=== PATIENT | male | born 1970 | race Caucasian/White ===

== ENCOUNTER 2016-06-26 16:58 | Inpatient (IN) | payer OTHER ==
[~2016-06-26 16:58] MED LIST: ACETAMINOPHEN 325 MG TAB PO PRN; DOCUSATE SODIUM 50 MG/SENNA 8.6 MG TAB PO PRN; METF500T PO; ONDANSETRON HCL 4 MG/2 ML VIAL IV PRN; RESP: ALBUTEROL 2.5 MG/3 ML NEB (PRN) INH; ROSU5 PO; SODIUM CHLORIDE 0.9% FLUSH 10 ML FLUSH IV FLUSH PRN; SPIRCAP INH; TEMAZEPAM 15 MG CAP PO PRN; [UNRECOGNIZED DRUG - REMARK]; methylPREDNISolone SOD SUCC 125 MG/2 ML VIAL IVP SCH
[2016-06-26 17:00] VITALS: BP 154/95; PULSE 85; RESP 22; TEMP 97.6; O2SAT 92
[2016-06-26] MEDS ORDERED: SODIUM CHLORIDE 0.9% FLUSH 10 ML FLUSH IV FLUSH PRN (17:15)
[2016-06-26] MEDS ORDERED: RESP: ALBUTEROL 2.5 MG/3 ML NEB (PRN) INH (17:15)
[2016-06-26] MEDS ORDERED: ACETAMINOPHEN 325 MG TAB PO PRN (17:15)
[2016-06-26] MEDS ORDERED: ONDANSETRON HCL 4 MG/2 ML VIAL IV PRN (17:15)
[2016-06-26] MEDS ORDERED: DOCUSATE SODIUM 50 MG/SENNA 8.6 MG TAB PO PRN (17:15)
[2016-06-26] MEDS ORDERED: TEMAZEPAM 15 MG CAP PO PRN (17:15)
--- NOTE | 2016-06-26 17:20 | HHI.HP ---
[facility] Service [facility] Primary Care Physician Unknown Admission Diagnosis Diagnoses: (1) Chronic obstructive pulmonary disease with hypoxia Diagnosis: Principal (2) Benign labile hypertension (3) Tobacco abuse (4) Leukocytosis (5) IFG (impaired fasting glucose) (6) Diabetes mellitus, type 2 Chief Complaint: Shortnes of breath Travel History International Travel<30 Days: No Contact w/Intl Traveler <30 Da: No Traveled to Known Affected Are: No History of Present Illness 46-year-old male with a history of diabetes type 2, COPD initially went to [place] [facility] for evaluation of acute shortness of breath and wheezing along with nonproductive cough and was subsequently transferred to [facility] for admission for COPD exacerbation. Patient states, he became severely short of breath while coughing and wasn't able to breathe however denies any chest pain. States, despite Treatment with Symbicort he had no improvement. He was diagnosed with some respiratory problem about 1 yr ago and he was prescribed Spiriva which he had run out of it in the past 4 months. He is unsure if it was a diagnosis for COPD. She also stated he was diagnosed with type 2 diabetes as been on metformin 500 mg however run out of his medication. He smokes over one pack and half a day. Currently he denies any GI bleed Review of Systems Other 12 systems review and are negative except for the ones mentioned in the history of present illness Past Family Social History Past Medical History COPD Past Surgical History appendectomy Reported Medications Crestor 20 mg daily Metformin 500 mg daily Spiriva Allergies: Coded Allergies: Phenobarbital (Verified Allergy, Intermediate, 06/26/16) Unknown Family History Family History positive for lung cancer Social History Alcohol Use: No Tobacco Use: Yes Substance Use: No Physical Exam Physical Exam GENERAL: This is a well-nourished, well-developed patient, in no apparent distress. SKIN: No rashes, ecchymoses or lesions. Cool and dry. HEAD: Atraumatic. Normocephalic. No temporal or scalp tenderness. EYES: Pupils equal round and reactive. Extraocular motions intact. No scleral icterus. No injection or drainage. ENT: Nose without bleeding, purulent drainage or septal hematoma. Throat without erythema, tonsillar hypertrophy or exudate. Uvula midline. Airway patent. NECK: Trachea midline. No JVD or lymphadenopathy. Supple, nontender, no meningeal signs. CARDIOVASCULAR: Regular rate and rhythm without murmurs, gallops, or rubs. RESPIRATORY: Clear to auscultation. Breath sounds decreased bilaterally. Expiratory wheezes GASTROINTESTINAL: Abdomen soft, non-tender, nondistended. No hepato-splenomegaly , or palpable masses. No guarding. MUSCULOSKELETAL: Extremities without clubbing, cyanosis, or edema. No joint tenderness, effusion, or edema noted. No calf tenderness. Negative Homans sign bilaterally. NEUROLOGICAL: Awake and alert. Cranial nerves II through XII intact. Motor and sensory grossly within normal limits. Five out of 5 muscle strength in all muscle groups. Normal speech. Assessment and Plan Problem List: (1) Chronic obstructive pulmonary disease with hypoxia ICD Code: J44.9 Status: Acute (2) Benign labile hypertension ICD Code: I10 Status: Acute (3) Leukocytosis ICD Code: D72.829 Status: Acute (4) IFG (impaired fasting glucose) ICD Code: R73.01 Status: Acute (5) Tobacco abuse ICD Code: Z72.0 Status: Chronic (6) Hypoxemia ICD Code: R09.02 Status: Acute Assessment and Plan 46-year-old man with COPD exacerbation with hypoxia CXR noted and review by me without any CPD ABG with PO2 of 84% Treatment with Solu Medrol 40mg Q8H, Symbicort, Spiriva, Scheduled and PRN Duo Neb, Azithromycin 250mg daily Maintain oxygen saturation above 92% and consider Respiratory Walk test prior to discharge Counselled about Tobacco cessation Benign Labile Hypertension Start Norvasc 5mg Daily Hydralazine PRN Diabetes type 2 Resume metformin and check hemoglobin A1c Start insulin sliding scale with fingerstick blood glucose monitoring Hyperlipidemia Resume statin Check lipid profile Leukocytosis 2/2 Stress reactive CXR without any CPD Monitor CBC Tobacco abuse Tobacco counselling provided Start Nicotine patch DVT prophylaxis: B-SCD Code Status Full code Discussed Condition With patient , , ED physician Physician Certification 2 Midnight Certification Type: Admission for Inpatient Services Order for Inpatient Services The services are ordered in accordance with Medicare regulations or non- Medicare payer requirements, as applicable. In the case of services not specified as inpatient-only, they are appropriately provided as inpatient services in accordance with the 2-midnight benchmark. Estimated LOS (days): 2 days is the estimated time the patient will need to remain in the hospital, assuming treatment plan goals are met and no additional complications. Post-Hospital Plan: Not yet determined Manish Hallman MD Jun 26, 2016 17:20
[2016-06-26] MEDS ORDERED: hydrALAZINE HCL 25 MG TAB PO PRN (17:45)
[2016-06-26] MEDS ORDERED: GLUCAGON 1 MG/ML VIAL OTHER PRN (18:30)
[2016-06-26] MEDS ORDERED: DEXTROSE 50% IN WATER 50 ML VIAL(D50) IV PUSH PRN (18:30)
[2016-06-26 19:23] VITALS: O2SAT 100
[2016-06-26] MEDS: RESP: ALBUTEROL 2.5 MG/IPRATROPIUM 0.5 MG NEB (SCH) NEB (19:23)
[2016-06-26 20:00] VITALS: BP 160/88; PULSE 84; RESP 20; TEMP 97.3; O2SAT 96
[2016-06-26] MEDS ORDERED: RESP: ALBUTEROL 2.5 MG/IPRATROPIUM 0.5 MG NEB (SCH) NEB (20:00)
[2016-06-26] MEDS: SODIUM CHLORIDE 0.9% FLUSH 10 ML FLUSH IV FLUSH SCH (20:56)
[2016-06-26] MEDS: ATORVASTATIN 20 MG TAB PO SCH (20:57)
[2016-06-26] MEDS: guaiFENesin E.R. 600 MG TAB PO SCH (20:58)
[2016-06-26] MEDS: INSULIN ASPART SUPPLEMENTAL SCALE SQ SCH (20:58)
[2016-06-26] MEDS ORDERED: guaiFENesin E.R. 600 MG TAB PO SCH (21:00)
[2016-06-26] MEDS ORDERED: BUDESONIDE-FORMOTEROL 160/4.5 MCG INHALER INH SCH (21:00)
[2016-06-26] MEDS ORDERED: SODIUM CHLORIDE 0.9% FLUSH 10 ML FLUSH IV FLUSH SCH (21:00)
[2016-06-26] MEDS: methylPREDNISolone SOD SUCC 125 MG/2 ML VIAL IVP SCH (21:00)
[2016-06-26] MEDS: BUDESONIDE-FORMOTEROL 160/4.5 MCG INHALER INH SCH (21:18)
[2016-06-27] VITALS (7 sets, daily range): BP systolic 119–161; BP diastolic 64–89; PULSE 66–81; RESP 20–22; TEMP 96.3–97.7; O2SAT 92–98
[2016-06-27] MEDS: methylPREDNISolone SOD SUCC 125 MG/2 ML VIAL IVP SCH ×3 (05:55→20:48)
[2016-06-27 06:41] LABS: AUTOMATED NEUTROPHIL # 16.9 TH/MM3 (1.8-7.7); BASOPHIL # 0.5 TH/MM3 (0-0.2); BASOPHIL % 2.5 % (0.0-2.0); EOSINOPHIL % 0.1 % (0.0-4.0); HEMATOCRIT 46.6 % (39.0-51.0); LYMPH % 8.1 % (9.0-44.0); LYMPHOCYTE # 1.6 TH/MM3 (1.0-4.8); MEAN CELL VOLUME 87.7 FL (80.0-100.0); MEAN CORPUSCULAR HEMOGLOBIN 29.3 PG (27.0-34.0); MEAN CORPUSCULAR HGB CONC 33.4 % (32.0-36.0); MONO % 1.2 % (0.0-8.0); NEUT % 88.1 % (16.0-70.0); PLATELET COUNT 285 TH/MM3 (150-450); RED BLOOD COUNT 5.31 MIL/MM3 (4.50-5.90); RED CELL DISTRIBUTION WIDTH 13.3 % (11.6-17.2); WHITE BLOOD COUNT 19.2 TH/MM3 (4.0-11.0)
[2016-06-27 06:48] LABS: CHLORIDE 106 MEQ/L (98-107); POTASSIUM 4.5 MEQ/L (3.5-5.1); SODIUM (NA) 140 MEQ/L (136-145)
[2016-06-27 06:50] LABS: HEMO FLAGS AUTO DIFF
[2016-06-27] MEDS: INSULIN ASPART SUPPLEMENTAL SCALE SQ SCH ×4 (06:52→20:48)
[2016-06-27 06:58] LABS: ANION GAP 9 MEQ/L (5-15); BICARBONATE 25.4 MEQ/L (21.0-32.0); BLOOD UREA NITROGEN 15 MG/DL (7-18)
[2016-06-27 07:00] LABS: AST (GOT) 10 U/L (15-37)
[2016-06-27 07:01] LABS: ALT (GPT) 32 U/L (12-78); GLOMERULAR FILTRATION RATE 99 ML/MIN (>89)
[2016-06-27 07:02] LABS: TOTAL BILIRUBIN ADULT 0.3 MG/DL (0.2-1.0)
[2016-06-27 07:03] LABS: ALKALINE PHOSPHATASE 110 U/L (45-117)
[2016-06-27 07:14] LABS: SCAN/DIFF AUTO DIFF CONFIRMED
[2016-06-27] MEDS: RESP: ALBUTEROL 2.5 MG/IPRATROPIUM 0.5 MG NEB (SCH) NEB ×3 (07:29→19:53)
[2016-06-27] MEDS: NICOTINE 21 MG/24 HR PATCH TD SCH (09:00)
[2016-06-27] MEDS ORDERED: TIOTROPIUM BROMIDE 18 MCG INH INH SCH (09:00)
[2016-06-27] MEDS ORDERED: NICOTINE 21 MG/24 HR PATCH TD SCH (09:00)
[2016-06-27] MEDS ORDERED: metFORMIN HCL 500 MG TAB PO SCH (09:00)
[2016-06-27] MEDS: amLODIPine BESYLATE 5 MG TAB PO SCH (09:00)
[2016-06-27] MEDS: guaiFENesin E.R. 600 MG TAB PO SCH ×2 (09:00→20:48)
[2016-06-27] MEDS: SODIUM CHLORIDE 0.9% FLUSH 10 ML FLUSH IV FLUSH SCH ×2 (09:01→20:49)
--- NOTE | 2016-06-27 09:29 | HHI.PR ---
Subjective Remarks Follow-up COPD exacerbation 06/27/16-patient seen and examined, reports significant improvement or shortness of breath as well as wheezing. Currently afebrile. Objective Vitals Vital Signs Date Time Temp Pulse Resp B/P Pulse Ox O2 Delivery O2 Flow Rate FiO2 06/27/16 08:00 97.7 78 20 153/77 94 06/27/16 07:31 95 Nasal Cannula 2.00 06/27/16 00:00 97.1 66 20 119/64 98 06/26/16 20:00 97.3 84 20 160/88 96 06/26/16 19:23 100 Nasal Cannula 4.00 06/26/16 17:00 97.6 85 22 154/95 92 I/O 06/26/16 06/26/16 06/26/16 06/27/16 06/27/16 06/27/16 07:00 15:00 23:00 07:00 15:00 23:00 Intake Total 480 ml 420 ml Output Total 250 ml 250 ml Balance 230 ml 170 ml Intake Oral 480 ml 420 ml Output Urine Total 250 ml 250 ml # Bowel Movements 0 0 Result Diagram: 06/27/16 0555 06/27/16 0555 Objective Remarks GENERAL: NAD SKIN: Warm and dry. HEAD: Normocephalic. EYES: No scleral icterus. No injection or drainage. NECK: Supple, trachea midline. No JVD or lymphadenopathy. CARDIOVASCULAR: Regular rate and rhythm without murmurs, gallops, or rubs. RESPIRATORY: Breath sounds equal bilaterally. No accessory muscle use. Positive for expiratory wheezes GASTROINTESTINAL: Abdomen soft, non-tender, nondistended. MUSCULOSKELETAL: No cyanosis, or edema. BACK: Nontender without obvious deformity. No CVA tenderness. A/P Problem List: (1) Chronic obstructive pulmonary disease with hypoxia ICD Code: J44.9 Status: Acute (2) Benign labile hypertension ICD Code: I10 Status: Acute (3) Tobacco abuse ICD Code: Z72.0 Status: Chronic (4) Leukocytosis ICD Code: D72.829 Status: Acute (5) Diabetes mellitus, type 2 ICD Code: E11.9 Status: Chronic Assessment and Plan 46-year-old man with COPD exacerbation with hypoxia CXR without any CPD ABG with PO2 of 84% on admission Improving and Continue Treatment with Solu Medrol 40mg Q8H, Symbicort, Spiriva, Scheduled and PRN Duo Neb, Azithromycin 250mg daily Maintain oxygen saturation above 92% and consider Respiratory Walk test prior to discharge Counselled about Tobacco cessation Benign Labile Hypertension Continue with Norvasc 5mg Daily Hydralazine PRN Diabetes type 2 Continue metformin, insulin sliding scale with fingerstick blood glucose monitoring and hemoglobin A1c pending Hyperlipidemia Continue statin and lipid profile pending Leukocytosis 2/2 Stress reactive versus steroid CXR without any CPD Monitor CBC Tobacco abuse Tobacco counselling provided, continue nicotine patch DVT prophylaxis: B-SCD Discharge Planning Likely discharge 06/28/16 Manish Hallman MD Jun 27, 2016 09:29
[2016-06-27 09:42] LABS: HDL CHOLESTEROL 48.4 MG/DL (40.0-60.0); LDL CHOLESTEROL 203 MG/DL (0-99)
[2016-06-27 15:00] LABS: HEMOGLOBIN A1a 1.1 %; HEMOGLOBIN A1b 2.5 %; HEMOGLOBIN Ao 79.6 %; HEMOGLOBIN P3 4.8 %
[2016-06-27] MEDS: ATORVASTATIN 20 MG TAB PO SCH (20:48)
[2016-06-27] MEDS: BUDESONIDE-FORMOTEROL 160/4.5 MCG INHALER INH SCH ×2 (20:50→21:00)
[2016-06-28 00:30] VITALS: BP 120/70; PULSE 80; RESP 18; TEMP 97.8; O2SAT 95
[2016-06-28] MEDS: methylPREDNISolone SOD SUCC 125 MG/2 ML VIAL IVP SCH (04:49)
[2016-06-28 07:22] LABS: AUTOMATED NEUTROPHIL # 21.2 TH/MM3 (1.8-7.7); BASOPHIL # 0.7 TH/MM3 (0-0.2); BASOPHIL % 2.9 % (0.0-2.0); HEMATOCRIT 45.2 % (39.0-51.0); LYMPH % 8.7 % (9.0-44.0); LYMPHOCYTE # 2.2 TH/MM3 (1.0-4.8); MEAN CELL VOLUME 86.2 FL (80.0-100.0); MEAN CORPUSCULAR HEMOGLOBIN 28.4 PG (27.0-34.0); MEAN CORPUSCULAR HGB CONC 32.9 % (32.0-36.0); MONO % 3.1 % (0.0-8.0); NEUT % 85.3 % (16.0-70.0); PLATELET COUNT 358 TH/MM3 (150-450); RED BLOOD COUNT 5.24 MIL/MM3 (4.50-5.90); RED CELL DISTRIBUTION WIDTH 13.2 % (11.6-17.2)
[2016-06-28 07:25] LABS: HEMO FLAGS AUTO DIFF
[2016-06-28 07:41] LABS: BICARBONATE 25.3 MEQ/L (21.0-32.0)
[2016-06-28 08:07] LABS: SCAN/DIFF AUTO DIFF CONFIRMED
[2016-06-28] MEDS: RESP: ALBUTEROL 2.5 MG/IPRATROPIUM 0.5 MG NEB (SCH) NEB (08:11)
[2016-06-28 08:17] VITALS: O2SAT 93
[2016-06-28 08:38] VITALS: BP 140/78; PULSE 64; RESP 16; TEMP 96.4; O2SAT 96
[2016-06-28] MEDS ORDERED: metFORMIN HCL 850 MG TAB PO SCH (09:00)
[2016-06-28] MEDS ORDERED: predniSONE 20 MG TAB PO SCH (09:00)
--- NOTE | 2016-06-28 09:07 | HHI.PR ---
Subjective Remarks Follow-up COPD exacerbation 06/27/16-patient seen and examined, reports significant improvement or shortness of breath as well as wheezing. Currently afebrile. 06/28/16-patient seen and examined, no acute event overnight, currently afebrile. Reports significant improvement of shortness of breath. Did pass respiratory walk test this morning. Discussed with patient regarding lifestyle change, diabetic education provided. Objective Vitals Vital Signs Date Time Temp Pulse Resp B/P Pulse Ox O2 Delivery O2 Flow Rate FiO2 06/28/16 08:38 96.4 64 16 140/78 96 06/28/16 08:17 93 21 06/28/16 04:14 06/28/16 00:30 97.8 80 18 120/70 95 06/27/16 20:41 96.3 81 22 123/76 92 06/27/16 19:53 94 Nasal Cannula 2.00 06/27/16 16:00 96.8 80 20 157/89 93 06/27/16 12:00 96.9 71 20 161/72 94 I/O 06/27/16 06/27/16 06/27/16 06/28/16 06/28/16 06/28/16 07:00 15:00 23:00 07:00 15:00 23:00 Intake Total 420 ml 850 ml Output Total 250 ml 600 ml Balance 170 ml 850 ml -600 ml Intake Oral 420 ml 850 ml Output Urine Total 250 ml 600 ml # Voids 5 2 # Bowel Movements 0 Result Diagram: 06/28/16 0640 06/28/16 0640 Objective Remarks GENERAL: NAD SKIN: Warm and dry. HEAD: Normocephalic. EYES: No scleral icterus. No injection or drainage. NECK: Supple, trachea midline. No JVD or lymphadenopathy. CARDIOVASCULAR: Regular rate and rhythm without murmurs, gallops, or rubs. RESPIRATORY: Breath sounds equal bilaterally. No accessory muscle use. GASTROINTESTINAL: Abdomen soft, non-tender, nondistended. MUSCULOSKELETAL: No cyanosis, or edema. BACK: Nontender without obvious deformity. No CVA tenderness. Procedures none A/P Problem List: (1) Chronic obstructive pulmonary disease with hypoxia ICD Code: J44.9 Status: Acute (2) Benign labile hypertension ICD Code: I10 Status: Acute (3) Tobacco abuse ICD Code: Z72.0 Status: Chronic (4) Leukocytosis ICD Code: D72.829 Status: Acute (5) Diabetes mellitus, type 2 ICD Code: E11.9 Status: Chronic Assessment and Plan 46-year-old man with COPD exacerbation with hypoxia CXR without any CPD ABG with PO2 of 84% on admission Improving and d/c Solu Medrol 40mg Q8H and start prednisone 20 mg daily taper and continue Symbicort, Spiriva, Scheduled and PRN Duo Neb, Azithromycin 250mg daily Maintain oxygen saturation above 92% . Passed Respiratory Walk test this AM Counselled about Tobacco cessation Benign Labile Hypertension Continue with Norvasc 5mg Daily Hydralazine PRN Diabetes type 2 Increase metformin to 850mg BID and add glipizide 5 mg twice a day, insulin sliding scale with fingerstick blood glucose monitoring and hemoglobin A1c 8.6. Patient advised to follow up outpatient with endocrinology Hyperlipidemia Continue statin and LDL 203 Leukocytosis 2/2 Stress reactive versus steroid CXR without any CPD Monitor CBC Tobacco abuse Tobacco counselling provided, continue nicotine patch DVT prophylaxis: B-Manish Constantino MD Jun 28, 2016 09:06
[2016-06-28] MEDS ORDERED: GLIP5 PO (09:11)
[2016-06-28] MEDS ORDERED: AMLO5 PO (09:11)
[2016-06-28] MEDS ORDERED: MUCI600T PO (09:11)
[2016-06-28] MEDS ORDERED: PRED20 PO (09:11)
[2016-06-28] MEDS ORDERED: SPIRCAP INH (09:11)
[2016-06-28] MEDS ORDERED: METF850 PO (09:11)
[2016-06-28] MEDS ORDERED: IPRA17I INH (09:11)
[2016-06-28] MEDS ORDERED: SYMB160A INH (09:11)
[2016-06-28] MEDS: amLODIPine BESYLATE 5 MG TAB PO SCH (09:15)
[2016-06-28] MEDS ORDERED: glipiZIDE 5 MG TAB PO SCH (09:15)
[2016-06-28] MEDS: guaiFENesin E.R. 600 MG TAB PO SCH (09:15)
[2016-06-28] MEDS: NICOTINE 21 MG/24 HR PATCH TD SCH (09:16)
--- NOTE | 2016-06-28 09:16 | HHI.DS ---
Discharge Summary Admission Date Jun 26, 2016 at 16:59 Discharge Date: Jun 28, 2016 Admitting Diagnosis (1) Chronic obstructive pulmonary disease with hypoxia ICD Code: J44.9 (2) Benign labile hypertension ICD Code: I10 (3) Tobacco abuse ICD Code: Z72.0 (4) Leukocytosis ICD Code: D72.829 (5) Diabetes mellitus, type 2 ICD Code: E11.9 Procedures none Brief History - From Admission 46-year-old male with a history of diabetes type 2, COPD initially went to [place] [facility] for evaluation of acute shortness of breath and wheezing along with nonproductive cough and was subsequently transferred to [facility] for admission for COPD exacerbation. Patient states, he became severely short of breath while coughing and wasn't able to breathe however denies any chest pain. States, despite Treatment with Symbicort he had no improvement. He was diagnosed with some respiratory problem about 1 yr ago and he was prescribed Spiriva which he had run out of it in the past 4 months. He is unsure if it was a diagnosis for COPD. She also stated he was diagnosed with type 2 diabetes as been on metformin 500 mg however run out of his medication. He smokes over one pack and half a day. Currently he denies any GI bleed CBC/BMP: 06/28/16 0640 06/28/16 0640 Significant Findings Laboratory Tests Test 06/27/16 06/28/16 05:55 06:40 White Blood Count 19.2 TH/MM3 25.0 TH/MM3 (4.0-11.0) (4.0-11.0) Neutrophils (%) (Auto) 88.1 % 85.3 % (16.0-70.0) (16.0-70.0) Lymphocytes (%) (Auto) 8.1 % 8.7 % (9.0-44.0) (9.0-44.0) Basophils (%) (Auto) 2.5 % (0.0-2.0) 2.9 % (0.0-2.0) Neutrophils # (Auto) 16.9 TH/MM3 21.2 TH/MM3 (1.8-7.7) (1.8-7.7) Basophils # (Auto) 0.5 TH/MM3 0.7 TH/MM3 (0-0.2) (0-0.2) Random Glucose 250 MG/DL 305 MG/DL (74-106) (74-106) Hemoglobin A1c 8.6 % (4.3-6.0) Aspartate Amino Transf 10 U/L (15-37) (AST/SGOT) Albumin 2.9 GM/DL (3.4-5.0) Cholesterol Level 275 MG/DL (120-200) LDL Cholesterol 203 MG/DL (0-99) Blood Urea Nitrogen 22 MG/DL (7-18) Estimat Glomerular Filtration 84 ML/MIN (>89) Rate Imaging Chest x-ray with enlarged cardiac silhouette, no acute cardio pulmonary visualized PE at Discharge GENERAL: NAD SKIN: Warm and dry. HEAD: Normocephalic. EYES: No scleral icterus. No injection or drainage. NECK: Supple, trachea midline. No JVD or lymphadenopathy. CARDIOVASCULAR: Regular rate and rhythm without murmurs, gallops, or rubs. RESPIRATORY: Breath sounds equal bilaterally. No accessory muscle use. GASTROINTESTINAL: Abdomen soft, non-tender, nondistended. MUSCULOSKELETAL: No cyanosis, or edema. BACK: Nontender without obvious deformity. No CVA tenderness. Hospital Course Patient admitted secondary to COPD exacerbation with hypoxemia was started on IV Solu-Medrol, long and short acting bronchodilator as well as by mouth azithromycin with oxygen saturation maintained above 92%. His condition improved and patient was subsequently switch to by mouth prednisone prior to discharge. He was continued on metformin over this was increased to 850 mg twice a day and glipizide 5 mg was added and patient was placed on sliding scale insulin. He was started on low dose Norvasc with improvement of blood pressure. Patient was continued on Statin. DVT and GI prophylaxis were provided. Vital stable and patient condition improved prior to discharge. Pt Condition on Discharge: Stable Discharge Disposition: Discharge Home Discharge Time: > 30 minutes Discharge Instructions DIET: Follow Instructions for: Diabetic Diet Activities you can perform: Regular-No Restrictions Follow up Referrals: PCP Follow-up - 1 Week New Medications: Ipratropium HFA 12.9 GM Inh (Atrovent HFA 12.9 GM Inh) 17 Mcg/Act Aer 2 PUFF INH Q6HR PRN SHORTNESS OF BREATH #1 Ref 3 INHALER Amlodipine (Norvasc) 5 Mg Tab 5 MG PO DAILY Blood Pressure Management #30 Ref 3 TAB Budesonide-Formoterol Inh (Symbicort Inh) 160-4.5 Mcg/Act Aero 2 PUFF INH Q12HR Breathing Treatment #1 Ref 3 INHALER Glipizide (Glucotrol) 5 Mg Tab 5 MG PO BID@08,17 Blood Sugar Management #60 Ref 3 TAB Guaifenesin ER 12 HR (Mucinex ER 12 HR) 600 Mg Trung 600 MG PO BID Breathing Treatment #20 TAB Metformin (Glucophage) 850 Mg Tab 850 MG PO BIDPC Blood Sugar Management #60 Ref 3 TAB Prednisone (Prednisone) 20 Mg Tab 20 MG PO DAILY Breathing Treatment #6 TAB Tiotropium Inh (Spiriva Handihaler) 18 Mcg Cap 18 MCG INH DAILY Breathing Treatment #1 Ref 3 CAP Continued Medications: Rosuvastatin (Crestor) 5 Mg Tab 5 MG PO DAILY Cholesterol Management #30 Ref 0 TAB Tiotropium Inh (Spiriva Handihaler) 18 Mcg Cap 18 MCG INH DAILY 1 capsule = 18 mcg COPD #30 Ref 0 CAP ([Rescue Inhaler?]) Discontinued Medications: Metformin (Metformin) 500 Mg Tab 500 MG PO BIDPC With meals Blood Sugar Management #60 Ref 0 TAB Additional Information Patient was provided extensive counseling on weight loss management, diabetic education was provided and further visit with endocrinology commended. Over 30 minutes spent addressing patient's concerns for this discharge Manish Hallman MD Jun 28, 2016 09:16
[2016-06-28] MEDS ORDERED: NICO21DI2 TD (10:34)
== END 2016-06-28 11:17 | disposition home or self-care (01) | DRG 192 ==
LOC: PHEDDLT 16:58 → PH3B 16:59
PROVIDERS: ADMIT Hospitalist; ATTEND Hospitalist
DX: J44.1 Chronic obstructive pulmonary disease with (acute) exacerbation (principal); I10 Essential (primary) hypertension; D72.829 Elevated white blood cell count, unspecified; E11.9 Type 2 diabetes mellitus without complications; E78.5 Hyperlipidemia, unspecified; F17.210 Nicotine dependence, cigarettes, uncomplicated; R09.02 Hypoxemia; Z79.84 Long term (current) use of oral hypoglycemic drugs; Z88.8 Allergy status to other drugs, medicaments and biological substances; Z80.1 Family history of malignant neoplasm of trachea, bronchus and lung
CPT/HCPCS: 36600; 71010; 80048; 80053; 80061; 82550; 82552; 82805; 82948; 83036; 83880; 84484; 85007; 85025; 85027; 85379; 93005; 94620; 94640; 94664; 96374; 99281; J1815; J2930; J7512; J7613